=== PATIENT | female | born 1985 ===

== ENCOUNTER 2016-11-29 11:10 | Emergency (ER) | payer MEDICAID ==
[2016-11-29 11:35] VITALS: BP 124/79
[2016-11-29] MEDS ORDERED: Acetaminophen TAB* 325 MG PO ONE (12:14)
--- NOTE | 2016-11-29 14:13 | UC ---
Upper Extremity HPI - HPI Summary HPI Summary: The patient comes in today for: 1. Bilateral arm pain: Onset: 1 week ago. Palliative/provocative: Wrist bands have helped at night. Heat and Icy Hot have helped. Tylenol has helped. Quality: Aching and sometimes sharp Region: From the fingertips to the shoulder bilaterally. Severity: 7/10 Time: Constant. 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 She tried baby aspirin at 1 in AM and 1 in PM. This did not help. Numbness: Some of the thumb and middle finger and index finger. Dizziness: She will feel "wobbly" 2-3 times/month. She has not seen anyone for it. She is not having these episodes now. She has no medical insurance. - History of Current Complaint Chief Complaint: UCUpperExtremity Stated Complaint: ARMS GIVING OUT Hx Last Menstrual Period: 11/29/16 ?: No - Allergies/Home Medications Allergies/Adverse Reactions: Allergies Allergy/AdvReac Type Severity Reaction Status Date / Time Hydrocodone [From Vicodin] Allergy See Comment Verified 11/29/16 11:24 Oxycodone [From Percocet] Allergy See Comment Verified 11/29/16 11:24 Home Medications: Home Medications Aspirin EC Low Dose* [Ecotrin EC Low Dose*] 1 tab BID 11/29/16 [History Confirmed 11/29/16] PMH/Surg Hx/FS Hx/Imm Hx Previously Healthy: Yes Endocrine History Of: Denies: Diabetes, Thyroid Disease, Hyperthyroidism, Hypothyroidism, Dyslipidemia Cardiovascular History Of: Denies: Cardiac Disorders, Hypertension, Pacemaker/ICD, Myocardial Infarction , Congestive Heart Failure, Atrial Fibrillation, Deep Vein Thrombosis, Bleeding Disorders Respiratory History Of: Reports: Asthma - Excerise-induced--seasonal and off the medication for "a couple years." Denies: COPD, Bronchitis, Pneumonia, Pulmonary Embolism GI/ History Of: Denies: Gastroesophageal Reflux, Ulcer, Gastrointestinal Bleed, Gall Bladder Disease, Kidney Stones, Diverticulitis, Renal Disease, Urosepsis Neurological History Of: Denies: TIA, CVA, Dementia, Seizures, Migraine Psychological History Of: Reports: Depression - Not on medications at this time. Denies: Anxiety, Bipolar Disorder, Schizophrenia, Post Traumatic Stress Disorder Cancer History Of: Denies: Lung Cancer, Colorectal Cancer, Breast Cancer, Prostate Cancer, Cervical Cancer Other History Of: Anticoagulant Therapy - Aspirin as stated above 81 mg bid-- for pain and "swelling." Negative For: HIV, Hepatitis B, Hepatitis C - Surgical History Surgical History: Yes Surgery Procedure, Year, and Place: Appendectomy. Tonsils - Family History Known Family History: Positive: Cardiac Disease, Diabetes Negative: Hypertension - Social History Occupation: Employed Full-time Alcohol Use: Occasionally Substance Use Type: None Smoking Status (MU): Current Some Day Smoker - Immunization History Most Recent Influenza Vaccination: Never Review of Systems Constitutional: Negative Skin: Negative Eyes: Negative ENT: Negative Respiratory: Negative Cardiovascular: Negative Gastrointestinal: Negative Genitourinary: Negative Musculoskeletal: Arthralgia, Myalgia All Other Systems Reviewed And Are Negative: Yes Physical Exam Triage Information Reviewed: Yes Appearance: Well-Appearing, No Pain Distress, Well-Nourished Vital Signs: Initial Vital Signs Temp 98.4 F 11/29/16 11:26 Pulse 89 11/29/16 11:26 Resp 18 11/29/16 11:26 BP 124/79 11/29/16 11:26 Pulse Ox 100 11/29/16 11:26 Vital Signs Reviewed: Yes Eyes: Positive: Conjunctiva Clear. Negative: Discharge ENT: Positive: Hearing grossly normal. Negative: Pharyngeal erythema, Nasal congestion, Nasal drainage, TM bulging, TM dull, Tonsillar swelling, Tonsillar exudate Dental: Negative: Gross Decay/Caries @, Dental Fracture @ Neck: Positive: Supple, Nontender, No Lymphadenopathy. Negative: Nuchal Rigidity Respiratory: Positive: Lungs clear, No respiratory distress, No accessory muscle use. Negative: Crackles, Wheezing Cardiovascular: Positive: RRR, No Murmur Abdomen Description: Positive: Nontender, No Organomegaly, Soft. Negative: Distended, Guarding Musculoskeletal: Positive: Strength Intact, ROM Intact, Other: - Shoulders: there is mild tenderness but no induration to palpation of the trapezius and muscles around both scapula. Arms: She has mild tenderness but no induration of the upper arms. Forearms: There is mild tenderness but no induration of the forearms with more tenderness to palpation of the left lateral and medial epicondyles. There is less tenderness on the right lateral and medial epicondyles. Lard Renderer strenght is normal and symmetrical. Positive Phalen's maneuver. Neurological: Positive: Alert, Muscle Tone Normal Psychological: Positive: Age Appropriate Behavior, Consolable Skin: Negative: rashes, breakdown Upper Extremity Course/Dx - Differential Dx/Diagnosis Differential Diagnosis/HQI/PQRI: Bursitis, Strain Provider Diagnoses: Bilateral overuse symdrome of both upper extremties. Muscular strain of bilateral shoulder, upper arms, forearms. Bilateral media and lateral epicondylitis. Bilateral carpal tunnel syndrome. Discharge - Discharge Plan Condition: Stable Disposition: HOME Patient Education Materials: Muscle Strain (ED), Tendinitis (ED), Carpal Tunnel Syndrome (ED) Forms: *Work Release Additional Instructions: Do not take aspirin while on the ibuprofen.
== END 2016-11-29 15:00 | disposition home or self-care (01) ==
LOC: UCEAST 11:10
DX: M70.822 Other soft tissue disorders related to use, overuse and pressure, left upper arm (principal); M70.821 Other soft tissue disorders related to use, overuse and pressure, right upper arm; S46.812A Strain of other muscles, fascia and tendons at shoulder and upper arm level, left arm, initial encounter; S46.811A Strain of other muscles, fascia and tendons at shoulder and upper arm level, right arm, initial encounter; G56.03 Carpal tunnel syndrome, bilateral upper limbs; X50.9XXA Other and unspecified overexertion or strenuous movements or postures, initial encounter; Y92.79 Other farm location as the place of occurrence of the external cause; Y99.0 Civilian activity done for income or pay; R03.0 Elevated blood-pressure reading, without diagnosis of hypertension; F17.200 Nicotine dependence, unspecified, uncomplicated; Z88.5 Allergy status to narcotic agent
CPT/HCPCS: 99213; A9270-GY; G0463

== ENCOUNTER 2019-02-07 02:52 | Emergency (ER) | payer BC ==
--- NOTE | 2019-02-07 03:10 | ED ---
Psychiatric Complaint - HPI Summary HPI Summary: This patient is a 33 year old female brought in by ambulance to [facility] with a chief complaint of MHE. Patient called the crisis hotline to be brought to the ED. Patient states that she drank alcohol today and her neurological is going out of whack. There are different stories between police and EMS, in which the patient does or does not exhibit SI. In ED, patient does not exhibit SI. Patient states she takes trazodone for sleep, but has not taken it in 6 days. - History Of Current Complaint Time Seen by Provider: 02/07/19 02:58 Hx Obtained From: Patient Hx Last Menstrual Period: 11/29/16 Onset/Duration: Lasting Hours, Still Present Timing: Constant Severity Currently: Severe Character: Manic, Anxious Aggravating Factor(s): Nothing Alleviating Factor(s): Nothing Has Suicidal: Denies: Thoughts - Allergies/Home Medications Allergies/Adverse Reactions: Allergies Allergy/AdvReac Type Severity Reaction Status Date / Time hydrocodone Allergy See Comment Verified 02/07/19 05:40 oxycodone Allergy See Comment Verified 02/07/19 05:40 PMH/Surg Hx/FS Hx/Imm Hx Previously Healthy: No Endocrine/Hematology History: Reports: Hx Anticoagulant Therapy - Aspirin as stated above 81 mg bid--for pain and "swelling." Denies: Hx Diabetes, Hx Thyroid Disease Cardiovascular History: Denies: Hx Congestive Heart Failure, Hx Deep Vein Thrombosis, Hx Hypertension , Hx Myocardial Infarction, Hx Pacemaker/ICD Respiratory History: Reports: Hx Asthma - Excerise-induced--seasonal and off the medication for "a couple years." Denies: Hx Chronic Obstructive Pulmonary Disease (COPD), Hx Lung Cancer, Hx Pneumonia, Hx Pulmonary Embolism GI History: Denies: Hx Gall Bladder Disease, Hx Gastrointestinal Bleed, Hx Ulcer, Hx Urosepsis History: Denies: Hx Kidney Stones, Hx Renal Disease Neurological History: Denies: Hx Dementia, Hx Migraine, Hx Seizures, Hx Transient Ischemic Attacks (TIA) Psychiatric History: Reports: Hx Depression - Not on medications at this time. Denies: Hx Anxiety, Hx Schizophrenia, Hx Bipolar Disorder - Surgical History Surgery Procedure, Year, and Place: Appendectomy. Tonsils Infectious Disease History: No Infectious Disease History: Denies: Traveled Outside the [place] in Last 30 Days - Family History Known Family History: Positive: Cardiac Disease, Diabetes Negative: Hypertension - Social History Alcohol Use: Occasionally Hx Substance Use: No Substance Use Type: Reports: None Hx Tobacco Use: Yes Smoking Status (MU): Current Some Day Smoker Review of Systems Negative: Fever Positive: Anxious, Other - EtOH intoxication All Other Systems Reviewed And Are Negative: Yes Physical Exam - Summary Physical Exam Summary: Appearance: Appears intoxicated Skin: Warm, dry, no obvious rash Eyes: sclera anicteric, no conjunctival pallor ENT: mucous membranes moist Neck: deferred Respiratory: hyperventilating Cardiovascular: Appears well perfused, pulses are nml Abdomen: deferred Musculoskeletal: Moving all 4 extremities without obvious discomfort Psych: Appears somewhat anxious and agitated, but able to answer questions appropriately Triage Information Reviewed: Yes Vital Signs On Initial Exam: Initial Vitals Temp Pulse Resp BP Pulse Ox 99 F 109 20 105/84 100 02/07/19 02:59 02/07/19 02:59 02/07/19 02:59 02/07/19 02:59 02/07/19 02:59 Vital Signs Reviewed: Yes Diagnostics - Vital Signs Vital Signs Temp Pulse Resp BP Pulse Ox 02/07/19 02:59 99 F 109 20 105/84 100 - Laboratory Result Diagrams: 02/07/19 03:15 02/07/19 03:15 Lab Statement: Any lab studies that have been ordered have been reviewed, and results considered in the medical decision making process. Course/Dx - Course Course Of Treatment: This patient is a 33 year old female brought in by ambulance to [facility] with a chief complaint of MHE. Patient called the crisis hotline to be brought to the ED. Patient states that she drank alcohol today and her neurological is going out of whack. There are different stories between police and EMS, in which the patient does or does not exhibit SI. In ED , patient does not exhibit SI. Patient states she takes trazodone for sleep, but has not taken it in 6 days. Bloodwork Obtained. Urinalysis Obtained. Patient will be signed out to Dr. Perry at the end of shift, pending MHE. - Differential Dx/Clinical Impression Provider Diagnosis: Alcohol intoxication, Anxiety Discharge - Sign-Out/Discharge Documenting (check all that apply): Sign-Out Patient Signing out patient TO: Tierney Perry Patient Received Moderate/Deep Sedation with Procedure: No - Discharge Plan Condition: Stable Referrals: Kristal Lane MD [Primary Care Provider] - - Billing Disposition and Condition Condition: STABLE - Attestation Statements Document Initiated by Anirudh: Yes Documenting Scribe: Noé Acosta Provider For Whom Anirudh is Documenting (Include Credential): Jose Carlos Richard MD Scribalicia Attestation: Noé Dang scribed for Jose Carlos Richard MD on 02/07/19 at 0635. Scribe Documentation Reviewed: Yes Provider Attestation: The documentation as recorded by the Noé loera accurately reflects the service I personally performed and the decisions made by me, Jose Carlos Richard MD Status of Scribe Document: Viewed
[2019-02-07 03:20] LABS: ABS Lymphocytes 1.9 10^3/ul (1.0-4.8); ABS Monocytes 0.6 10^3/ul (0-0.8); ABS Neutrophils 13.4 10^3/ul (1.5-7.7); Hematocrit 40 % (35-47); Hemoglobin 13.2 g/dL (12.0-16.0); Lymphocyte % 11.9 %; Mean Corpuscular HGB Conc 33 g/dL (31-36); Mean Corpuscular Hemoglobin 29 pg (27-31); Mean Corpuscular Volume 87 fL (80-97); Mean Platelet Volume 7.2 fL (7.4-10.4); Platelet Count 215 10^3/uL (150-450); Red Blood Count 4.57 10^6 /uL (3.70-4.87); Red Cell Distribution Width 14 % (10.5-15); White Blood Count 15.9 10^3/uL (3.5-10.8)
[2019-02-07 03:38] LABS: ALT 29 U/L (7-52); AST 24 U/L (13-39); Albumin 5.1 g/dL (3.2-5.2); Albumin/Globulin Ratio 1.5 (1-3); Alkaline Phosphatase 61 U/L (34-104); Anion Gap 14 mmol/L (2-11); BUN/Creatinine Ratio 18.9 (8-20); Blood Urea Nitrogen 14 mg/dL (6-24); CO2 Carbon Dioxide 18 mmol/L (22-32); Calcium 9.6 mg/dL (8.6-10.3); Chloride 110 mmol/L (101-111); EGFR African American 110.8 (>60); EGFR Non-African American 91.5 (>60); Globulin 3.3 g/dL (2-4); Glucose 87 mg/dL (70-100); Potassium 3.9 mmol/L (3.5-5.0); Sodium 142 mmol/L (135-145); Total Protein 8.4 g/dL (6.4-8.9)
[2019-02-07 03:42] LABS: Acetaminophen < 15 mcg/mL; Alcohol 265 mg/dL (<10); Salicylate < 2.50 mg/dL (<30)
[2019-02-07 03:44] LABS: HCG Pregnancy < 0.60 mIU/mL
[2019-02-07 03:57] LABS: TSH (Thyroid Stimulating Horm) 1.17 mcIU/mL (0.34-5.60)
[2019-02-07 05:19] LABS: Urine Appearance Cloudy; Urine Bacteria 1+ (Absent); Urine Bilirubin Negative (Negative); Urine Blood 1+ (Negative); Urine Color Yellow; Urine Glucose Negative (Negative); Urine Ketones 1+ (Negative); Urine Nitrite Negative (Negative); Urine Protein Negative (Negative); Urine Red Blood Cell Trace(0-2/hpf) (Absent); Urine Specific Gravity 1.009 (1.010-1.030); Urine Squamous Epithelial Cell Present (Absent); Urine Urobilinogen Negative (Negative); Urine White Blood Cell 2+(11-20/hpf) (Absent)
[2019-02-07 05:27] LABS: Urine Benzodiazepine Screen None Detected (None Detect); Urine Opiates Screen None Detected (None Detect)
[2019-02-07] MEDS ORDERED: LORazepam TAB(*) 1 MG PO ONE (07:39)
--- NOTE | 2019-02-07 07:57 | ED ---
Progress - Progress Note Progress Note: Dr. Perry receiving sign-out from Dr. Richard pending MHE at 0700 02/07/19. Patient is a 33 year old female presenting for alcohol intoxication, depression. At 0751 she is still intoxicated and is actively experiencing a panic attack, crying and shaking both arms, and saying "what's happening to me? ". Patient was given Ativan 1mg po to treat the presumed panic attack, at pt's request to help her calm down. Aspirin EC TAB* [Ecotrin EC Low Dose 81 MG*] 1 tab BID 11/29/16 [History Confirmed 11/29/16] Ibuprofen TAB* [Motrin TAB* 800 MG] 0.5 - 1 tab PO Q6H PRN #40 tab 11/29/16 [Rx] Physical Exam Appearance: Ill-appearing, no pain distress, well-nourished, crying tears, crying out "what's happening to me?" Skin: Warm, color reflects adequate perfusion, dry Head: Normal Head/Face inspection, atraumatic Eyes: Conjunctiva clear ENT: Normal inspection Neck: Supple, no nodes, no JVD Respiratory: Lungs clear, normal breath sounds, no respiratory distress Cardio: RRR, No murmur, pulses normal, brisk capillary refill Abdomen: Soft, nontender Bowel sounds: Present Musculoskeletal: Strength Intact/ROM intact, no calf tenderness, no edema. Psychological: depressed, active panic/anxiety at time of initial evaluation Neuro: Alert, muscle tone normal, no focal deficit Re-Evaluation - Re-Evaluation First Eval Re-Evaluation Time: 10:19 Change: Improved Comment: resting quietly after Ativan 1mg po. Pt states she has support through "[facility]" through [facility]. Second Eval Re-Evaluation Time: 10:38 Change: Improved Comment: Calm and speaking to her mother, Heather, from [facility]. at this time. Mother is not planning to come to [place] at this time. Pt changed to q15 minute observation, now. Calm, clinically sober. Ambulatory. Worried about her dog. Wants to call a friend to check on her dog. Course/Dx - Course Course Of Treatment: Dr. Perry receiving sign-out from Dr. Richard at 0700 pending E. This patient is a 33 year old female brought in by ambulance to [facility] with a chief complaint of intoxication, expressing suicial ideation to police while intoxicated with plan to overdose on trazodone, which is a new medication for her, and giving her adverse effects. At 0751 she is still intoxicated and is actively experiencing a panic attack. Patient was given Ativan to treat the panic attack at her request to have something to calm her down. Patient medically clear for ETOH sobriety by normal ETOH metabolism at 0900. Labs reveal Ur Specific Graavity 1.009L, Urine Ketones 1+ A, Urine Blood 1+ A, Ur Leukocyte Esterase 2+ A, Urine WBC 2+ (11-20/hpf) A, Ur Squamous Epith Cells Present A, Urine Bacteria 1+ A. 1456: AMAN Mariano states Dr. Markham favors discharge for pt for substance abuse and anxiety. I agree with this disposition. Pt has reliable established follow up with [facility]" at [facility]. Pt has been calm and cooperative since this am. A friend is coming to hop picker pt. García NEWTON discussed pt's care with her mother who also agreed with disposition. Mother states they are trying to dx possible Lyme disease or Grant Newell ds, but not a dx that needs hospitalization or further testing in the ED. - Diagnoses Provider Diagnoses: Alcohol intoxication, Anxiety, Substance abuse Discharge - Sign-Out/Discharge Documenting (check all that apply): Patient Departure - Discharge, per MHE. , Receiving Sign-Out Receiving patient FROM: Jose Carlos Richard - 0700, 02/07/19 - Discharge Plan Condition: Stable Referrals: Kristal Lane MD [Primary Care Provider] - - Attestation Statements Document Initiated by Scribe: Yes Documenting Scribe: Milan Meier Provider For Whom Scribe is Documenting (Include Credential): Tierney Perry MD Scribe Attestation: IMilan, scribed for Tierney Perry MD on 02/07/19 at 1501. Status of Scribe Document: Ready
[2019-02-07] MEDS ORDERED: Lithium Carbonate TAB* 300 MG PO ONE (08:13)
[2019-02-07 08:42] LABS: Lithium < 0.10 mmol/L (0.6-1.2)
[2019-02-07 15:04] VITALS: BP 114/67
== END 2019-02-07 15:03 | disposition home or self-care (01) ==
LOC: ED 02:52
DX: F10.129 Alcohol abuse with intoxication, unspecified (principal); F41.9 Anxiety disorder, unspecified; F19.10 Other psychoactive substance abuse, uncomplicated; Z79.82 Long term (current) use of aspirin; Z72.0 Tobacco use
CPT/HCPCS: 36415; 80053; 80178; 80307; 80320; 80329; 81003; 81015; 84443; 84702; 85025; 87086; 99285; A9270-GY; G0480